=== PATIENT | female | born 1975 | race Caucasian/White ===

== ENCOUNTER 2016-07-06 11:09 | Emergency (ER) | payer MEDICAID ==
[~2016-07-06] VITALS: Ht 157.5 cm; Wt 71.0 kg
[~2016-07-06 11:09] MED LIST: LISI-662 PO; METF500T4 PO; PRAV40 PO; SIMV-261 PO
[2016-07-06 12:24] VITALS: BP 139/92
[2016-07-06 12:25] LABS: INFLUENZA TYPE B NEGATIVE FOR TYPE B (NEGATIVE)
== END 2016-07-06 13:56 | disposition home or self-care (01) ==
LOC: EMS 11:13
DX: J20.9 Acute bronchitis, unspecified (principal); I10 Essential (primary) hypertension; E78.00 Pure hypercholesterolemia, unspecified; E11.9 Type 2 diabetes mellitus without complications
CPT/HCPCS: 82962; 87804; 99284

== ENCOUNTER 2018-10-14 07:41 | Emergency (ER) | payer MEDICAID ==
[~2018-10-14] VITALS: Ht 152.4 cm; Wt 83.2 kg
[~2018-10-14 07:41] MED LIST changes: +METF-960 PO; -METF500T4 PO; -PRAV40 PO; +PRAV40TA4 PO
[2018-10-14] MEDS ORDERED: FLUO-191 PO (07:49)
[2018-10-14 08:15] VITALS: BP 159/96
[2018-10-14] MEDS ORDERED: DiphenhydrAMINE HCL 50 MG CAPSULE PO ONE (08:15)
== END 2018-10-14 08:34 | disposition home or self-care (01) ==
LOC: EMS 07:42
DX: H10.11 Acute atopic conjunctivitis, right eye (principal); I10 Essential (primary) hypertension; E78.00 Pure hypercholesterolemia, unspecified; E11.9 Type 2 diabetes mellitus without complications; F41.9 Anxiety disorder, unspecified; Z79.84 Long term (current) use of oral hypoglycemic drugs

== ENCOUNTER 2021-01-26 20:12 | Emergency (ER) | payer MEDICAID ==
[~2021-01-26] VITALS: Ht 149.9 cm; Wt 81.8 kg
[~2021-01-26 20:12] MED LIST changes: +FLUO-191 PO; -LISI-662 PO; +LISI-894 PO; -SIMV-261 PO
[2021-01-26] MEDS ORDERED: LIDOCAINE 5% TRANSDERMAL PATCH TD ONE (22:30)
[2021-01-26] MEDS ORDERED: CYCLOBENZAPRINE HCL 10 MG TABLET PO ONE (23:15)
[2021-01-26 23:31] LABS: APPEARANCE,URINE CLEAR (CLEAR); BILIRUBIN,URINE NEGATIVE (NEGATIVE); GLUCOSE, URINE (UA) NEGATIVE (NEGATIVE); KETONES,URINE NEGATIVE (NEGATIVE); LEUKOCYTE ESTERASE ,URINE SMALL (NEGATIVE); NITRATE,URINE NEGATIVE (NEGATIVE); OCCULT BLOOD,URINE NEGATIVE (NEGATIVE); PH,URINE 6.5 (5.0-8.0); PROTEIN,URINE NEGATIVE (NEGATIVE); UROBILINOGEN,URINE 0.2 mg/dL (<=1.0)
[2021-01-26 23:43] LABS: BACTERIA,URINE Few /HPF (None Seen); RBC,URINE 0-2 /HPF (0-2)
[2021-01-27] MEDS ORDERED: KETOROLAC TROMETHAMINE 30 MG/ML VIAL IM ONE (00:15)
[2021-01-27 00:31] VITALS: BP 144/78
== END 2021-01-27 00:50 | disposition home or self-care (01) ==
LOC: EMS 21:54
DX: M54.9 Dorsalgia, unspecified (principal)
CPT/HCPCS: 36415; 72100; 81001; 84703; 96372; 99284; J1885

== ENCOUNTER → 2023-05-28 | Emergency (ER) | payer MEDICAID, OTHER ==
[~2023-05-28] VITALS: Ht 154.9 cm; Wt 76.0 kg
[~2023-05-28] MED LIST changes: +CEPH-558 PO; +CefTRIAXone 1 GM/DEXTROSE 50 ML IV ONE; +FLUO-177 PO; -FLUO-191 PO; +KETOROLAC TROMETHAMINE 30 MG/ML VIAL IVP ONE; +METF-1211 PO; -METF-960 PO; +ONDANSETRON HCL 4 MG/2 ML VIAL IVP ONE; +SODIUM CHLORIDE 0.9% 1,000 ML IV ONE; +SULF-261 PO
[2023-05-28 19:51] LABS: BASOPHILS % (AUTO) 0.4 % (0.0-2.0); EOSINOPHILS % (AUTO) 1.3 % (1.0-6.0); HEMATOCRIT 40.3 % (36-46); HEMOGLOBIN 13.8 g/dL (12.0-16.0); LYMPHOCYTES # (AUTO) 1.5 K/uL (1.0-4.8); LYMPHOCYTES % (AUTO) 14.3 % (22.0-44.0); MEAN CORPUSCULAR HEMOGLOBIN 29.5 pg (26.0-34.0); MEAN CORPUSCULAR HGB CONC 34.1 G/dL (31.0-37.0); MEAN CORPUSCULAR VOLUME 87 fL (80-100); MONOCYTES # (AUTO) 0.9 K/uL (0.1-1.0); NEUTROPHILS # (AUTO) 8.2 K/uL (1.8-7.7); PLATELET COUNT (AUTO) 284 K/uL (150-450); RED BLOOD CELL COUNT(AUTO) 4.66 MIL/uL (4.00-5.20); RED CELL DISTRIBUTION WIDTH 13.4 % (11.5-14.5); WHITE BLOOD COUNT (AUTO) 10.7 K/uL (4.5-11.0)
[2023-05-28 19:54] LABS: APPEARANCE,URINE HAZY (CLEAR); BILIRUBIN,URINE NEGATIVE (NEGATIVE); COLOR,URINE LIGHT YELLOW (YELLOW); GLUCOSE, URINE (UA) NEGATIVE (NEGATIVE); KETONES,URINE NEGATIVE (NEGATIVE); LEUKOCYTE ESTERASE ,URINE LARGE (NEGATIVE); NITRATE,URINE NEGATIVE (NEGATIVE); OCCULT BLOOD,URINE TRACE (NEGATIVE); PH,URINE 6.5 (5.0-8.0); PROTEIN,URINE NEGATIVE (NEGATIVE); SPECIFIC GRAVITIY, URINE 1.007 (1.003-1.030); UROBILINOGEN,URINE <=1.0 mg/dL (<=1.0)
[2023-05-28 20:07] LABS: BACTERIA,URINE Few /HPF (None Seen); RBC,URINE 0-2 /HPF (0-2); SQUAMOUS EPITHELIAL CELL,UR Few /LPF (None Seen); WBC,URINE 26-50 /HPF (0-5)
[2023-05-28 20:26] LABS: ALBUMIN 4.4 g/dL (3.4-5.0); CALCIUM, TOTAL 9.7 mg/dL (8.8-10.5); CHLORIDE 101 mmol/L (98-107); HCG,QUANTITATIVE 3 mIU/mL (0-6); POTASSIUM 4.1 mmol/L (3.5-5.1); SODIUM SERUM 142 mmol/L (136-145)
[2023-05-28 20:43] LABS: ALANINE AMINOTRANSFERASE 20 U/L (12-78); ALKALINE PHOSPHATASE 113 U/L (46-116); ASPARTATE AMINOTRANSFERASE 18 U/L (15-37); CREATININE 0.82 mg/dL (0.60-1.30); GLOMERULAR FILTR. RATE CALC > 60 mL/min (>60); GLUCOSE,RANDOM 118 mg/dL (70-110); UREA NITROGEN, BLOOD 14 mg/dL (7-18)
[2023-05-28 21:14] LABS: ANION GAP 13 mmol/L (8-16); BILIRUBIN,TOTAL 0.4 mg/dL (0.1-1.0); CARBON DIOXIDE 28 mmol/L (22-29); LIPASE 65 U/L (16-77); TOTAL PROTEIN, SERUM 8.3 g/dL (6.4-8.2)
[2023-05-28 22:39] VITALS: BP 136/81; PULSE 88; RESP 18; TEMP 98.8
== END | disposition still patient (30) ==
LOC: EMS 19:26
DX: N39.0 Urinary tract infection, site not specified (principal); E11.9 Type 2 diabetes mellitus without complications; E78.00 Pure hypercholesterolemia, unspecified; I10 Essential (primary) hypertension; F41.9 Anxiety disorder, unspecified; Z98.890 Other specified postprocedural states
CPT/HCPCS: 99285; 96365; 96375; 80053; 81001; 83690; 84702; 85025; 36415; 87086; 87186; J0696; J1885; J2405; J7030

== ENCOUNTER 2024-12-11 01:21 | Emergency (ER) | payer OTHER ==
[~2024-12-11] VITALS: Ht 152.4 cm; Wt 76.4 kg
[~2024-12-11 01:21] MED LIST changes: -CEPH-558 PO; -CefTRIAXone 1 GM/DEXTROSE 50 ML IV ONE; -KETOROLAC TROMETHAMINE 30 MG/ML VIAL IVP ONE; -ONDANSETRON HCL 4 MG/2 ML VIAL IVP ONE; +PRAV-59 PO; -PRAV40TA4 PO; -SODIUM CHLORIDE 0.9% 1,000 ML IV ONE
[2024-12-11 01:32] VITALS: BP 164/94; PULSE 91; RESP 18; TEMP 98.2; O2SAT 100
[2024-12-11 01:51] LABS: GLUCOMETER DEV NAME(LOC) ER.7; GLUCOSE,POINT OF CARE 90 MG/DL (70-110)
== END 2024-12-11 03:12 | disposition left against medical advice (07) ==
LOC: EMS 01:21
DX: M79.602 Pain in left arm (principal); Z53.21 Procedure and treatment not carried out due to patient leaving prior to being seen by health care provider
CPT/HCPCS: 82962